=== PATIENT | male | born 1970 | race African-American/Black ===

== ENCOUNTER 2021-12-31 23:25 | Emergency (ER) | payer OTHER, SELFPAY ==
[2021-12-31 23:29] VITALS: BP 174/107; PULSE 66; RESP 15; TEMP 36.6; O2SAT 99
--- NOTE | 2022-01-01 00:05 | ED.GENADULT ---
HPI - General Adult General Chief complaint: Neuro Symptoms/Deficit Stated complaint: left side facial droop Time Seen by Provider: 12/31/21 23:34 Source: patient and RN notes reviewed Mode of arrival: ambulatory Limitations: no limitations History of Present Illness HPI narrative: This is a 51 year old male who presents for evaluation of right facial droop since 3 am this morning. 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 He noticed that his right side was drooping this morning starting over 20 hours ago. He reports tingling to right side of face. He denies slurred speech, headache, dizziness or focal weakness. HE does feel like his right eye is dry and gritty. He states he knows that he has sher's palsy. Related Data Allergies Allergy/AdvReac Type Severity Reaction Status Date / Time No Known Allergies Allergy Verified 12/31/21 23:36 Review of Systems Review of Systems: All systems reviewed & are unremarkable except as noted in HPI and below Constitutional: Constitutional: Denies chills and Denies fatigue Eyes: Eyes: Denies change in vision and Denies photophobia ENT: Denies vertigo, Denies nasal congestion and Denies sore throat Cardiovascular: Cardiovascular: Denies chest pain and Denies radiating jaw, neck or arm pain Respiratory: Respiratory: Denies chest congestion and Denies cough Gastrointestinal: Gastrointestinal: Denies abdominal pain, Denies nausea and Denies vomiting Neurologic: Denies vertigo, Denies dizziness, Denies syncope, Denies headache(s) and Denies focal weakness Psychiatric: Psychiatric: Denies anxiety and Denies depression PMFSH Past Medical History Medical History (Updated 01/01/22 @ 00:16 by Lucretia Saenz MD) H/O Sher's palsy Surgical History Surgical History (Updated 01/01/22 @ 00:11 by Lucretia Saenz MD) No pertinent past surgical history Social History Social History (Updated 01/01/22 @ 00:11 by Lucretia Saenz MD) Smoking status: Never smoker Exam Const: General: healthy appearing and alert Nutritional Appearance: well nourished Orientation/consciousness: patient oriented x3 HENMT: Head: normal to inspection Ears: external ears normal and TM's normal bilaterally General nose exam: Normal external nose present Mouth: Yes Normal oral and palatal mucosa present and Yes moist mucous membranes Throat: posterior oropharynx normal and uvula midline Other: left prearicular large nodule that has been present for many years Eyes: Conjunctivae: conjunctivae normal Pupils: Equal, round and reactive pupils present EOM: EOMs intact bilaterally Neck: Neck: normal visual inspection Chest: Chest palpation & inspection: normal inspection of the chest Resp: Effort & Inspection: normal respiratory effort Auscultation: clear to auscultation bilaterally Cardio: Rate: regular rate Rhythm: regular rhythm Heart sounds: no murmurs Neuro: General: patient oriented x3, moves all extremities and no meningeal signs Cranial nerves: Yes Bilaterally intact EOM present, Yes Nystagmus not present, Yes Midline tongue present, Yes Ability to bilaterally rotate head present, Yes Ability to bilaterally elevate shoulders present and Yes Other cranial nerve findings present (right upper and lower facial paralysis) Cognition (Neuro): normal cognition Speech: normal speech Gait exam (Neuro): Normal gait present Course Reevaluation(s) Reevaluation #1: Patient appears to have Sher's palsy. No other deficits. I Discussed discharge plan and management Date: 01/01/22 Time: 00:14 Vital Signs Vital signs: Vital Signs Temperature 97.8 F 12/31/21 23:29 Pulse Rate 66 12/31/21 23:29 Respiratory Rate 15 12/31/21 23:29 Blood Pressure 174/107 H 12/31/21 23:29 Pulse Oximetry 99 12/31/21 23:29 Oxygen Delivery Room Air 12/31/21 23:29 Temperature 98.0 F 01/01/22 00:37 Pulse Rate 53 L 01/01/22 00:37 Res
[2022-01-01 00:37] VITALS: BP 155/98; PULSE 53; RESP 19; TEMP 36.7; O2SAT 99
--- NOTE | 2022-01-01 00:38 | PC.NURSE ---
Pt ambulated out of ED c steady, even, unassisted gait. Verbalized understanding of d/c instructions.
== END 2022-01-01 00:38 | disposition home or self-care (01) ==
LOC: ANHED 01-01 00:19
PROVIDERS: Emergency Provider General Practice
DX: G51.0 Bell's palsy (principal); R29.702 NIHSS score 2
CPT/HCPCS: 99283

== ENCOUNTER 2024-07-09 09:41 | Emergency (ER) | payer OTHER, SELFPAY ==
--- NOTE | ~2024-07-09 | CT_ITS ---
EXAMINATION: CT brain wo con DATE: 07/09/2024 11:58 INDICATION: Migraine headache. TECHNIQUE: Computed tomography (CT) of the head was performed without intravenous contrast. The mA wa s adjusted according to patient size. Iterative reconstruction technique was employed. The dose-lengt h product was 605.33 mGy-cm. COMPARISON: None FINDINGS: There is no intracranial hemorrhage, acute infarction, or abnormal intracranial mass lesion . The ventricles are normal in size. There is mild mucosal thickening in the paranasal sinuses. The m astoid air cells are normal. The orbits are normal. IMPRESSION: 1. Normal brain. Reviewed, dictated and finalized at location A. [employer] TE[employer]IST IMPRESSION: 1. Normal brain.
[2024-07-09 09:49] VITALS: BP 154/91; PULSE 116; RESP 20; TEMP 37.1; O2SAT 97
--- OUTSIDE RECORDS SUMMARY | 2024-07-09 10:40 | XMS_ITS | Clinical Summary ---
Author Organization [facility] Address [address] [address] Care Team Providers Care Make Up Man Name Role Phone Unavailable Primary Care Provider Unavailabl e Source Comments [facility],non-owned Affiliates and Associated Physician Practices is amultiple site organization consisting of ambulatory clinics and hospital sitesin [place], [place], [place] and [place]. This disclosure is being madepursuant to the Care Everywhere program and may not contain all information available regarding this patient. Last updated 18.[facility] Scienion Social History Tobacco Use Types Packs/Day Years Used Date Smoking Tobacco: Never Alcohol Use Standard Drinks/Week Comments No 0 (1 standard drink = 0.6 oz pur e alcohol) Sex and Gender Information Value Date Recorded Sex Assigned at Not on file Gender Identity Not on file Sexual Orientation Not on file Last Filed Vital Signs Vital Sign Reading Time Taken Comments Blood Pressure 146/93 12/04/2014 2:12 AM CDT Pulse 56 12/04/2014 3:24 AM CDT Temperature 36.7 C (98 F) 12/04/2014 2:12 AM CDT Respiratory Rate 15 12/04/2014 3:24 AM CDT Oxygen Saturation 99% 12/04/2014 3:24 AM CDT Inhaled Oxygen Concentration - - Weight 106.6 kg (235 lb) 12/04/2014 2:12 AM CDT Height 193 cm (6' 4 ) 12/04/2014 2:12 AM CDT Body Mass Index 28.61 12/04/2014 2:12 AM CDT Plan of Treatment Health Maintenance Due Date Last Done Comments COLOGUARD (AGES 45-75) - COL ON CA SCREENING 1972 COLON MONITORING 1972 COLONOSCOPY - COLON CA SCREENING 1972 CT COLONOGRAPHY - COLON CA SCREENING 1972 Colorectal Cancer Screening 1972 FIT - COLON CA SCREENING 1972 FLEX SIG - COLON CA SCREENING 1972 LIPID TESTING 1972 HIV SCREENING 07/20/1987 HEPATITIS C SCREENING 07/15/1990 DTAP/TDAP/TD VACCINES (1 - Tdap) 07/20/1991 HEPATITIS B VACCINE (1 of 3 - 19+ 3-dose series) 07/20/1991 PNEUMOCOCCAL VACCINE 50+ (1 of 1 - PCV) 2022 ZOSTER VACCINE (1 of 2) 2022 COVID-19 VACCINE ( - 2023-2 5 season) 2024 INFLUENZA VACCINE (#1) 2024 DEPRESSION SCREENING 05/14/2024 HIB VACCINE Aged Out No longer eligi ble based on patient's age to complete this topic HPV VACCINE Aged Out No longer eligi ble based on patient's age to complete this topic MENINGOCOCCAL (Group B) VACCINE Aged Out No longer eligible based on patient's age to complete this topic MENINGOCOCCAL VACCINE Aged Out No jac babs eligible based on patient's age to complete this topic PNEUMOCOCCAL VACCINE Aged Out No long er eligible based on patient's age to complete this topic
--- OUTSIDE RECORDS SUMMARY | 2024-07-09 10:40 | XMS_ITS | Referral Summary ---
Author Organization [facility] Address [address] [place] [place] [address] Care Team Providers Care Registered Radiologic Technologist Name Role Phone Unavailable Primary Care Provider Unavailabl e Source Comments [facility],non-owned Affiliates and Associated Physician Practices is amultiple site organization consisting of ambulatory clinics and hospital sitesin [place], [place], [place] and [place]. This disclosure is being madepursuant to the Care Everywhere program and may not contain all information available regarding this patient. Last updated 18.[facility] Social History Tobacco Use Types Packs/Day Years [...] 12/04/2014 2:12 AM CDT Plan of Treatment Not on file
--- OUTSIDE RECORDS SUMMARY | 2024-07-09 10:40 | XMS_ITS | Clinical Summary ---
Author Organization [facility] Address [address] [place] [address] Care Team Providers Care County Nurse Name Role Phone Unavailable Primary Care Provider Unavailabl e Social History Tobacco Use Types Packs/Day Years Used Date Smoking Tobacco: Never Assessed Sex and Gender Information Value Date Recorded Sex Assigned at Not on file Legal Sex Male 5:17 PM CDT Gender Identity Not on file Sexual Orientation Not on file Plan of Treatment Health Maintenance Due Date Last Done Comments Colorectal Cancer Screening Colonoscopy (10 Years) 1972 Annual Physical 07/20/1975 Hepatitis C 1990 DTaP, Tdap and Td Vaccines ( 1 - Tdap) 07/20/1991 Hepatitis B Vaccines (1 of 3 - 19+ 3-dose series) 07/20/1991 Zoster Vaccines (1 of 2) 2022 COVID-19 Vaccine (2023-2 5 season) 2024 Influenza Adult (#1) 2024 Meningococcal B Vaccine Aged Out No l onger eligible based on patient's age to complete this topic Meningococcal Vaccine Aged Out No jac babs eligible based on patient's age to complete this topic Pneumococcal Vaccine: Pediat rics (0 to 5 Years) and At-Risk Patients (6 to 64 Years) Aged Out No longer eligible b ased on patient's age to complete this topic RSV Immunizations Under 20 Months Aged Out No longer eligible based on patient's age to complete this topic
--- OUTSIDE RECORDS SUMMARY | 2024-07-09 10:40 | XMS_ITS | Patient Health Summary ---
Author Organization [facility] Address [address] [place] [address] Care Team Providers Care Network Services Project Manager Name Role Phone Unavailable Primary Care Provider Unavailabl e Note from [facility],non-owned Affiliates and Associated Physician Practices is amultiple site organization consisting of ambulatory clinics and hospital sitesin [place], [place], [place] and [place]. This disclosure is being madepursuant to the Care Everywhere program and may not contain all information available regarding this patient. Last updated 18.[facility] Social History Tobacco Use Types Packs/Day Years [...] Mass Index 28.61 12/04/2014 2:12 AM CDT Procedures * GLUCOSE ACCUCHECK(Performed 12/04/2014) Results * GLUCOSE ACCUCHECK (12/04/2014 2:10 AM CDT) Glucose, Fingerstick 99 70-115mg/d L mg/dL [facility] (BEAKER) Comment: RN notified name is Fluorescent Lighting Model Maker: ANNY [place] 12/04/2014 2:10 AM CDT Margarette Shirley MD LAB - CHEMISTRY [facility] P[facility] ([facility])
--- OUTSIDE RECORDS SUMMARY | 2024-07-09 10:40 | XMS_ITS | Clinical Summary ---
Author Organization [facility] [address] Address [address] [place] [id number] Care Team Providers Care Reclaimer Name Role Phone Amy Bob Primary Care Provider [phone] Naga South MD Unavailable [phone] Allergies No known active allergies Medications amLODIPine (NORVASC) 5 mg tabletIndications :Primary hypertension Take 1 tablet (5 mg total) by mouth daily 90 tablet 3 5 Active amLODIPine (NORVASC) 5 mg tablet Take 1 tablet (5 mg total) by mouth daily 90 tablet 3 3 06/23/19 25 Discontinu ed(Reorder ) Active Problems Problem Noted Date Diagnosed Date Encounter for screening colonoscopy 01/10/2023 Screening for colon cancer 04/24/2022 Overview (04/24/2022): Added automatically from request for surgery [id number] Assessment & Plan (09/06/2022 1:27 PM CDT): Colonoscopy scheduled for 10/2022 Primary hypertension 01/09/2022 Assessment & Plan (03/08/2023 3:32 PM CDT): Stable on norvasc 5 mg daily. Lab order printed and given to patient. He will try to complete in next couple weeks. Assessment & Plan (09/06/2022 1:28 PM CDT): Not to goal. He d/c'd his medication due to it looking different. Suspect was from different boarder hand. Encouraged him to restart norvasc 5 mg daily. He can reach out to pharmacy to verify he was given correct medication. Recommend home BP monitoring. Assessment & Plan (02/06/2022 11:56 AM CDT): Well controlled. Continue current regimen. Assessment & Plan (01/09/2022 12:55 PM CDT): New diagnosis. Start amlodipine 5 mg daily. 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 He has normal facial nerve function. We talked about getting back to work and I think that is fine but I would wait another week for that. He is fine with that also. At this point the tumor was completely excised. There is no need for further intervention. I will follow up with him as needed. 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 I explained to him that this is a tumor. I am recommending removal of this because it will continue to get larger and there is some potential for malignancy. I talked with the patient about the risks of parotidectomy surgery. The risks include facial paralysis, permanent numbness at the operative site including the ear. There is also risk of recurrence of this tumor or the potential need for further surgery to address disease. There is also some risk of bleeding, infection and permanent cosmetic deformity including the scar and soft tissue defect at the operative site. I told the may be off work for 2-3 weeks recovering. 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 He understands this. He would like to proceed. Encounters Date Type Department Care Team Description 06/23/2024 9:00 AM PRODUCTION TECHNOLOGIST Office Visit [facility] [address] [place] [address] Zabrina Everett DNP Annual physical exam (Primary Dx); Encounter to establish care; Primary hypertension; Screening for diabetes mellitus; Thyroid disorder screen; Lipid screening; Encounter for vitamin deficiency screening; Prostate cancer screening; Encounter for long-term (current) use of medications from Last 3 Months Immunizations Immunization Administration Dates Next Due DTP 03/08/1979, 5,08/13/1973,1972, 3 Influenza, Unspecified 06/23/2024(Deferr ed: Patient Refused),03/08/2023(Deferred: Patient Refused),02/06/2022(Deferred: Patient Refused),05/14/2021(Deferred: Patient Refused),02/11/2021(Deferred: Patient Refused),01/12/2021(Deferred: Patient Refused),05/14/2020(Deferred: Patient Refused) Mumps 01/12/1978 OPV 03/08/1979, 5,08/13/1973,1972, 3 Rubella 12/17/1973 Td, adsorbed 12/23/1988 Surgical History Surgery Date Site/Laterality Comments PAROTIDECTOMY 05/22/2022 Left Medical History Medical History Date Comments Sher's palsy 12/2021 Hypertension Mass of left parotid gland 02/21/2022 Parotid tumor 05/22/2022 Family History Medical History Relation Name Comments Heart disease Father No Known Problems Mother Relation Name Status Comments Father Mother Alive Social History Tobacco Use Types Packs/Day Years Used Date Smoking Tobacco: Never Smokeless Tobacco: Never Tobacco Cessation:Counseling Given: Not Answered AUDIT-C Answer Date Recorded Q1: How often do you have a drink containing alc ohol? Monthly or less 06/23/2024 Q2: How many drinks containi ng alcohol do you have on a typical day when you are drinking? 1 or 2 06/23/2024 Q3: How often do you have si x or more drinks on one occasion? Never 06/23/2024 PHQ-2 Answer Date Recorded PHQ-2 Total Score (If total score is 3 or more points, staff should administer the PHQ-9) 0 06/23/2024 Personal Safety Answer Date Recorded Have you ever been in or are you currently in a harmful physical or emotional relationship or is someone making you feel afraid or unsafe? Denies 03/26/2023 Sex and Gender Information Value Date Recorded Sex Assigned at Not on file Legal Sex Male 5:42 PM PRODUCTION TECHNOLOGIST Gender Identity Not on file Sexual Orientation Not on file Obstetrics History Last Filed Vital Signs Vital Sign Reading Time Taken Comments Blood Pressure 146/90 06/23/2024 9:07 AM PRODUCTION TECHNOLOGIST Pulse 85 06/23/2024 9:07 AM PRODUCTION TECHNOLOGIST Temperature 36.1 C (97 F) 03/26/2023 8:14 AM PRODUCTION TECHNOLOGIST Respiratory Rate 18 06/23/2024 9:07 AM PRODUCTION TECHNOLOGIST Oxygen Saturation 98% 06/23/2024 9:07 AM PRODUCTION TECHNOLOGIST Inhaled Oxygen Concentration - - Weight 130.5 kg (287 lb 9.6 oz) 06/23/2024 9:07 AM PRODUCTION TECHNOLOGIST Height 193 cm (6' 4 ) 06/23/2024 9:07 AM PRODUCTION TECHNOLOGIST Body Mass Index 35.01 06/23/2024 9:07 AM PRODUCTION TECHNOLOGIST Plan of Treatment Health Maintenance Due Date Last Done Comments Hepatitis C Screening 1972 DTaP/Tdap/Td Vaccine (6 - Tdap) 12/24/1988 12/23/1988, 03/08/1979, 09/04/1974, Additional history exists Hepatitis B Screening 1990 Zoster Vaccine (1 of 2) 2022 Prostate Cancer Screening-PSA 08/20/2023 08/19/2021 Covid-19 Vaccine ( season) 2024 08/16/2020 Influenza Vaccine (#1) 2024 Depression Screening 06/23/2025 06/23/2024, 09/06/2022, 08/19/2021 Regular Well Visit/Exam 18-64 06/23/2025 06/23/2024, 09/06/2022 Colon Cancer Screening-Colonoscopy 03/26/2026 03/26/2023 Pneumococcal vaccine <65 Aged Out No longer eligible based on patient's age to complete this topic Procedures Procedure Name Priority Date/Time Associated Diagnosis Comments COLONOSCOPY 03/26/2023 7:48 AM PRODUCTION TECHNOLOGIST PSA SCREEN Routine 08/19/2021 8:54 AM CDT Establishing care with new doctor, encounter for Screening PSA (prostate specific antigen) Lipid screening from Last 3 Months or Most Recently Relevant to Health Maintenance Results * COLONOSCOPY (03/26/2023 7:48 AM PRODUCTION TECHNOLOGIST) Anatomical Region Laterality Modality Other Narrative Procedure Note Ray Cee MD - 03/26/2023 7:48 AM CST [facility] GI ENDOSCOPY Patient Name: Fei Coombs Procedure Date: 03/26/2023 7:48 AM Date of : 1970 Admit Type: Outpatient Age: 52 Gender: Male Attending MD: Ray Cee M.D. Room: [facility] ENDOSCOPY ROOM 06 Note Status: Finalized Procedure: Colonoscopy Indications: Screening for colorectal malignant neoplasm Referring MD: Myron Blanchard Providers: Ray Cee M.D. Medicines: Monitored Anesthesia Care Complications: No immediate complications. Estimated Blood Loss: Estimated blood loss: none. Procedure: Pre-Anesthesia Assessment: - Prior to the procedure, a History and Physicalwas performed, and patient medications and allergieswere reviewed. The risks and benefits of the procedureand the sedation options and risks were discussed withthe patient. All questions were answered and informed consent was obtained. Patient identification and proposed procedure were verified. After reviewingthe risks and benefits, the patient was deemed in satisfactory condition to undergo the procedure.The anesthesia plan was to use monitored anesthesiacare (MAC). Immediately prior to administration of medications, the patient was re-assessed foradequacy to receive sedatives. The heart rate, respiratory rate, oxygen saturations, blood pressure, adequacyof pulmonary ventilation, and response to care were monitored throughout the procedure. The physical status of the patient was re-assessed after the procedure. The benefits, risks and alternatives of theprocedure and sedation were discussed and informed consentwas obtained. All questions were answered. Please referto the signed informed consent document in the medical record. The scope was passed under direct vision.The [id number] colonoscope was introduced through theanus and advanced to the cecum, identified byappendiceal orifice and ileocecal valve. The colonoscopy was performed without difficulty. The patient tolerated the procedure well. The quality of the bowel preparation was fair. Scope withdrawal time was 14 minutes. Prep was administered in a split dose. Findings: The perianal and digital rectal examinations were normal. A 15 mm polyp was found in the cecum. The polyp was sessile. Thepolyp was removed with a hot snare. Resection and retrieval werecomplete. Multiple medium-mouthed diverticula were found in the sigmoidcolon. Non-bleeding internal hemorrhoids were found during retroflexion. The hemorrhoids were small. The exam was otherwise without abnormality. Impression: - Preparation of the colon was fair. - One 15 mm polyp in the cecum, removed with a hot snare. Resected and retrieved. - Diverticulosis in the sigmoid colon. - Non-bleeding internal hemorrhoids. - The examination was otherwise normal. Recommendation: - Patient has a contact number available for emergencies. The signs and symptoms of potential delayed complications were discussed with thepatient. Return to normal activities tomorrow. Written discharge instructions were provided to thepatient. - High fiber diet. - Continue present medications. - Await pathology results. - Repeat colonoscopy in 3 years for surveillance. Ray Cee, M.D. Ray Cee M.D. 03/26/2023 8:14:27 AM . Number of Addenda: 0 Note Initiated On: 03/26/2023 7:48 AM Recognized by the [employer] for promoting quality in endoscopy us Ray Cee MD ENDOSCOPY PROCEDURES Final Resul t * PSA screen (08/19/2021 8:54 AM CDT) PSA-Total 1.50 ng/mL SAY ALEMAN Comment: Interpretive Data AGE SEX REFERENCE INTERVAL 0 minutes-150 years Female None 0 minutes-49 years Male None 50-59 years Male 0-3.90 60-69 years Male 0-5.40 70-79 years Male 0-6.20 80-150 years Male 0-6.20 Current interpretive data last revised 2018. Blood 08/19/2021 8:54 AM CDT 08/19/2021 3:02 PM CDT Johny Fuentes MD LAB BLOOD ORDERABLES Vesta l Result [facility] [address] Department [place] [address] from Last 3 Months or Most Recently Relevant to Health Maintenance Insurance [facility] [employer] [employer] [facility] [employer] Advance Directives For more information, please contact: [phone] * Full Code (Latest Code Status on File) Date Activated Date Inactivated Comments 05/22/2022 4:20 PM 05/23/2022 12:52 PM Care Teams Reclaimer Relationship Specialty Start Date End Date Amy Bob PA PCP - General Family Medicine 01/09/22 [place] [address] Consulting Physician Otolaryngology 05/23/22
--- OUTSIDE RECORDS SUMMARY | 2024-07-09 10:40 | XMS_ITS | Referral Summary ---
Author Organization [facility] [address] Address [address] [place] [phone] Care Team Providers Care Senior Radiation Protection Technician Name Role Phone Amy Bob Primary Care Provider [phone] Naga South MD Unavailable [phone] Encounters Date Type Department Care Team Description 06/23/2024 9:00 AM GIS MANAGER Office Visit [facility] Family Medicine [address] [place] [phone] Zabrina Everett DNP Annual physical exam (Primary Dx); Encounter to establish care; Primary hypertension; Screening for diabetes mellitus; Thyroid disorder screen; Lipid screening; Encounter for vitamin deficiency screening; Prostate cancer screening; Encounter for long-term (current) use of medications from Last 3 Months Allergies No known active allergies Medications amLODIPine [...] (04/24/2022): Added automatically from request for surgery [id number] Assessment & Plan (09/06/2022 1:27 PM CDT): [...] it looking different. Suspect was from different motorsports technician. Encouraged him to restart norvasc 5 mg [...] 06/23/2024 Assessment & Plan (06/02/2022 10:56 AM GIS MANAGER): He is healing very well. He has [...] for 2-3 weeks recovering. 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 He understands this. He would like to proceed. Immunizations Immunization Administration Dates Next Due DTP 03/08/1979, 5,08/13/1973,1972, 3 Influenza, Unspecified 06/23/2024(Deferr ed: Patient Refused),03/08/2023(Deferred: Patient Refused),02/06/2022(Deferred: Patient Refused),05/14/2021(Deferred: Patient Refused),02/11/2021(Deferred: Patient Refused),01/12/2021(Deferred: Patient Refused),05/14/2020(Deferred: Patient Refused) Mumps 01/12/1978 OPV 03/08/1979, 5,08/13/1973,1972, 3 Rubella 12/17/1973 Td, adsorbed 12/23/1988 Social History Tobacco Use Types Packs/Day Years [...] on file Legal Sex Male 5:42 PM GIS MANAGER Gender Identity Not on file Sexual Orientation Not on file Last Filed Vital Signs Vital Sign Reading Time Taken Comments Blood Pressure 146/90 06/23/2024 9:07 AM GIS MANAGER Pulse 85 06/23/2024 9:07 AM GIS MANAGER Temperature 36.1 C (97 F) 03/26/2023 8:14 AM GIS MANAGER Respiratory Rate 18 06/23/2024 9:07 AM GIS MANAGER Oxygen Saturation 98% 06/23/2024 9:07 AM GIS MANAGER Inhaled Oxygen Concentration - - Weight 130.5 kg (287 lb 9.6 oz) 06/23/2024 9:07 AM GIS MANAGER Height 193 cm (6' 4 ) 06/23/2024 9:07 AM GIS MANAGER Body Mass Index 35.01 06/23/2024 9:07 AM GIS MANAGER Plan of Treatment Not on file Procedures Procedure Name Priority Date/Time Associated Diagnosis Comments COLONOSCOPY 03/26/2023 7:48 AM GIS MANAGER PSA SCREEN Routine 08/19/2021 8:54 AM CDT Establishing care with new doctor, encounter for Screening PSA (prostate specific antigen) Lipid screening from Last 3 Months or Most Recently Relevant to Health Maintenance Results * COLONOSCOPY (03/26/2023 7:48 AM GIS MANAGER) Anatomical Region Laterality Modality Other Narrative Procedure Note Ray Cee MD - 03/26/2023 7:48 AM CST [facility] GI ENDOSCOPY Patient Name: Fei Coombs Procedure Date: 03/26/2023 7:48 AM Date of : 1970 Admit Type: Outpatient Age: 52 Gender: Male Attending MD: Ray Cee M.D. Room: [facility] ENDOSCOPY ROOM 06 Note Status: Finalized Procedure: [...] The scope was passed under direct vision.The PCF-[id number] colonoscope was introduced through theanus and advanced [...] colonoscopy in 3 years for surveillance. Ray Cee M.D. Ray Cee M.D. 03/26/2023 8:14:27 AM . Number of Addenda: 0 Note Initiated On: 03/26/2023 7:48 AM Recognized by the [place] [employer] for promoting quality in endoscopy Ray Cee MD ENDOSCOPY PROCEDURES Final Resul t * PSA screen (08/19/2021 8:54 AM CDT) PSA-Total 1.50 ng/mL SAY Comment: Interpretive Data AGE SEX REFERENCE INTERVAL 0 minutes-150 years Female None 0 minutes-49 years Male None 50-59 years Male 0-3.90 60-69 years Male 0-5.40 70-79 years Male 0-6.20 80-150 years Male 0-6.20 Current interpretive data last revised 2018. Blood 08/19/2021 8:54 AM CDT 08/19/2021 3:02 PM CDT Johny Fuentes MD LAB BLOOD ORDERAB[place] [address] [address] [place] [address] from Last 3 Months or Most Recently Relevant to Health Maintenance Insurance [facility] CHOICE PLUS [facility] CHOICE PLUS Advance Directives For more information, please contact: [phone] * Full Code (Latest Code Status on File) Date Activated Date Inactivated Comments 05/22/2022 4:20 PM 05/23/2022 12:52 PM Care Teams Senior Radiation Protection Technician Relationship Specialty Start Date End Date Amy Bob PA PCP - General Family Medicine 01/09/22 Naga South MD [address] [place] [address] Consulting Physician Otolaryngology 05/23/22
--- NOTE | 2024-07-09 11:44 | ED_ITS ---
HPI - Headache General Chief Complaint: Headache <Rita Rodas PA-C - Last Filed: 07/09/24 16:03> Stated Complaint: SNOWDEN since yesterday <Rita Rodas PA-C - Last Filed: 07/09/24 16:03> Time Seen by Provider: 07/09/24 11:44 <Rita Rodas PA-C - Last Filed: 07/09/24 16:03> Focused HPI: This is a 53 year old male that presents to the ER for a migraine headache. Ongoing since yesterday. He took Ibuprofen this morning for pain with some improvement. Reports he does not usually get migraines. No recent injuries. Denies vision changes, vomiting, numbness, weakness. GENERAL: Well-appearing, well-nourished, and in no acute distress. HEAD: Normocephalic, atraumatic. CHEST: Clear to auscultation. ?No respiratory distress. HEART: Regular rate and rhythm.? NEURO: ?Alert and oriented x3. Patient screened in triage and initial orders placed.? ?Additional care and disposition to be based upon?diagnostic testing and treatment. <Rita Rodas PA-C - Last Filed: 07/09/24 16:03> History of Present Illness HPI Narrative: Agree with HPI <Ja Stahl MD - Last Filed: 07/09/24 16:01> Related Data Allergies/Adverse Reactions: Allergies Allergy/AdvReac Type Severity Reaction Status Date / Time No Known Allergies Allergy Verified 07/09/24 09:43 <Rita Rodas PA-C - Last Filed: 07/09/24 16:03> Review of Systems 2 Review of Systems: All systems reviewed & are unremarkable except as noted in HPI and below <Ja Stahl MD - Last Filed: 07/09/24 16:01> Constitutional: Constitutional: Reports no additional constitutional complaints <Ja Stahl MD - Last Filed: 07/09/24 16:01> Cardiovascular: Cardiovascular: Reports no additional cardiovascular complaints <Ja Stahl MD - Last Filed: 07/09/24 16:01> Respiratory: Respiratory: Reports no additional respiratory complaints < aJ Stahl MD - Last Filed: 07/09/24 16:01> Gastrointestinal: Gastrointestinal: Reports no additional gastrointestinal complaints <Ja Stahl MD - Last Filed: 07/09/24 16:01> Musculoskeletal: Musculoskeletal: Reports no additional musculoskeletal complaints <Ja Stahl MD - Last Filed: 07/09/24 16:01> PMFSH Past Medical History Medical History: Medical History (Updated 07/09/24 @ 15:59 by Ja Stahl MD) H/O Sher's palsy <Rita Rodas PA-C - Last Filed: 07/09/24 16:03> Surgical History Surgical History: Surgical History (Updated 01/01/22 @ 00:11 by Lucretia Saenz MD) No pertinent past surgical history <Rita Rodas PA-C - Last Filed: 07/09/24 16:03> Social History Social History: Social History (Updated 01/01/22 @ 00:11 by Lucretia Saenz MD) Smoking status: Never smoker <Rita Rodas PA-C - Last Filed: 07/09/24 16:03> Exam 2 Narrative: GENERAL: Well-appearing, well-nourished, and in no acute distress. HEAD: Normocephalic, atraumatic. ENT: Mucous membranes moist. CHEST: Clear to auscultation. No respiratory distress. HEART: Regular rate and rhythm. Normal peripheral pulses. ABDOMEN: Soft, nontender, nondistended. EXTREMITIES: Normal range of motion. No edema. SKIN: Warm, dry, no rash. NEURO: Alert and oriented x3. PSYCH: Normal mood and affect. <Ja Stahl MD - Last Filed: 07/09/24 16:01> Course Course Emergency Course: Patient resting comfortably. Informed of results. Hydrated. Discharge home. <Ja Stahl MD - Last Filed: 07/09/24 16:01> Vital Signs Vital signs: Vital Signs Temperature 98.8 F 07/09/24 09:49 Pulse Rate 116 H 07/09/24 09:49 Respiratory Rate 20 07/09/24 09:49 Blood Pressure 154/91 H 07/09/24 09:49 Pulse Oximetry 97 07/09/24 09:49 Temperature 98.8 F 07/09/24 09:49 Pulse Rate 88 07/09/24 15:35 Respiratory Rate 18 07/09/24 15:35 Blood Pressure 142/77 H 07/09/24 15:35 Pulse Oximetry 95 07/09/24 15:35 <Rita Rodas PA-C - Last Filed: 07/09/24 16:03> Vital Signs Temperature 98.8 F 07/09/24 09:49 Pulse Rate 116 H 07/09/24 09:49 Respiratory Rate 20 07/09/24 09:49 Blood Pressure 154/91 H 07/09/24 09:49 Pulse Oximetry 97 07/09/24 09:49 Temperature 98.8 F 07/09/24 09:49 Pulse Rate 88 07/09/24 15:35 Respiratory Rate 18 07/09/24 15:35 Blood Pressure 142/77 H 07/09/24 15:35 Pulse Oximetry 95 07/09/24 15:35 <Ja Stahl MD - Last Filed: 07/09/24 16:01> MDM - Headache Lab Data Result diagrams: 07/09/24 13:58 07/09/24 13:58 <Rita Rodas PA-C - Last Filed: 07/09/24 16:03> Labs: Lab Results 07/09/24 Range/Units 13:58 WBC 6.1 (4.5-10.0) K/mm3 RBC 5.39 (4.6-6.20) M/mm3 Hgb 14.7 (14.0-18.0) g/dL Hct 43.8 (42.0-52.0) % MCV 81.3 (80-100) fl MCH 27.3 (26-34) pg MCHC 33.6 (32-36) g/dl RDW 15.2 H (11.5-14.5) % Plt Count 259 (150-375) k/mm3 MPV 10.6 H (7.4-10.4) fl Immature Gran % (Auto) 0.5 (0-0.5) % Neut % (Auto) 75.9 H (45.5-73.1) % Lymph % (Auto) 11.6 L (18.3-44.2) % Stephens % (Auto) 11.1 H (2.6-8.5) % Eos % (Auto) 0.2 (0-4.4) % Baso % (Auto) 0.7 (0.2-1.2) % Lymph # (Auto) 0.71 L (0.9-3.2) K/mm3 Stephens # (Auto) 0.7 H (0.1-0.6) K/mm3 Eos # (Auto) 0.0 (0-0.3) K/mm3 Baso # (Auto) 0.0 (0.0-0.1) K/mm3 Abs Immat Gran (auto) 0.03 (0.00-0.031) K/mm3 Absolute Neuts (auto) 4.6 (1.3-6.7) K/mm3 Absolute Nucleated RBC 0.000 (0.0-0.012) K/mm3 Nucleated RBC % 0.0 (0.0-0.2) % Sodium 138 (137-145) mmol/L Potassium 3.4 (3.4-5.0) mmol/L Chloride 103 (98-107) mmol/L Carbon Dioxide 24 (22-30) mmol/L Anion Gap 11 (4-12) mmol/L BUN 10 (9-20) mg/dL Creatinine 0.95 (0.7-1.3) mg/dL Estim Creat Clear Calc 114 ml/min Estimated GFR > 60 (59 - ) Glucose 100 (65-110) mg/dL Calcium 9.0 (8.4-10.2) mg/dL Total Bilirubin 0.9 (0.2-1.3) mg/dL AST 36 (17-59) U/L ALT 36 (6-50) U/L Alkaline Phosphatase 66 (38-126) U/L Total Protein 8.0 (6.3-8.2) g/dL Albumin 4.1 (3.5-5.1) g/dL Influenza A (RT-PCR) Positive A (Negative) Influenza B (RT-PCR) Negative (Negative) RSV (RT-PCR) Negative (Negative) SARS-CoV-2 RNA (RT-PCR) Negative (Negative) <Rita Rodas PA-C - Last Filed: 07/09/24 16:03> Lab Results 07/09/24 Range/Units 13:58 WBC 6.1 (4.5-10.0) K/mm3 RBC 5.39 (4.6-6.20) M/mm3 Hgb 14.7 (14.0-18.0) g/dL Hct 43.8 (42.0-52.0) % MCV 81.3 (80-100) fl MCH 27.3 (26-34) pg MCHC 33.6 (32-36) g/dl RDW 15.2 H (11.5-14.5) % Plt Count 259 (150-375) k/mm3 MPV 10.6 H (7.4-10.4) fl Immature Gran % (Auto) 0.5 (0-0.5) % Neut % (Auto) 75.9 H (45.5-73.1) % Lymph % (Auto) 11.6 L (18.3-44.2) % Stephens % (Auto) 11.1 H (2.6-8.5) % Eos % (Auto) 0.2 (0-4.4) % Baso % (Auto) 0.7 (0.2-1.2) % Lymph # (Auto) 0.71 L (0.9-3.2) K/mm3 Stephens # (Auto) 0.7 H (0.1-0.6) K/mm3 Eos # (Auto) 0.0 (0-0.3) K/mm3 Baso # (Auto) 0.0 (0.0-0.1) K/mm3 Abs Immat Gran (auto) 0.03 (0.00-0.031) K/mm3 Absolute Neuts (auto) 4.6 (1.3-6.7) K/mm3 Absolute Nucleated RBC 0.000 (0.0-0.012) K/mm3 Nucleated RBC % 0.0 (0.0-0.2) % Sodium 138 (137-145) mmol/L Potassium 3.4 (3.4-5.0) mmol/L Chloride 103 (98-107) mmol/L Carbon Dioxide 24 (22-30) mmol/L Anion Gap 11 (4-12) mmol/L BUN 10 (9-20) mg/dL Creatinine 0.95 (0.7-1.3) mg/dL Estim Creat Clear Calc 114 ml/min Estimated GFR > 60 (59 - ) Glucose 100 (65-110) mg/dL Calcium 9.0 (8.4-10.2) mg/dL Total Bilirubin 0.9 (0.2-1.3) mg/dL AST 36 (17-59) U/L ALT 36 (6-50) U/L Alkaline Phosphatase 66 (38-126) U/L Total Protein 8.0 (6.3-8.2) g/dL Albumin 4.1 (3.5-5.1) g/dL Influenza A (RT-PCR) Positive A (Negative) Influenza B (RT-PCR) Negative (Negative) RSV (RT-PCR) Negative (Negative) SARS-CoV-2 RNA (RT-PCR) Negative (Negative) <Ja Stahl MD - Last Filed: 07/09/24 16:01> Imaging Data Radiologist's impression: ITS Impressions Head CT 07/09/24 12:04 IMPRESSION: 1. Normal brain. <Ja Stahl MD - Last Filed: 07/09/24 16:01> Discharge Plan Discharge Clinical Impression: Influenza A <Rita Rodas PA-C - Last Filed: 07/09/24 16:03> Patient Disposition: Home, Self-Care <Rita Rodas PA-C - Last Filed: 07/09/24 16:03> Condition: Stable <Rita Rodas PA-C - Last Filed: 07/09/24 16:03> Instructions: Influenza (ED) <Rita Rodas PA-C - Last Filed: 07/09/24 16:03> Additional Instructions: Return to the ER if you cannot breathe, cannot swallow, you lose consciousness, or you have additional concerns. <Rita Rodas PA-C - Last Filed: 07/09/24 16:03> Patient Language: [place]an <Rita Rodas PA-C - Last Filed: 07/09/24 16:03> Prescriptions: New oseltamivir [Tamiflu] 75 mg capsule 75 mg PO Q12H 5 Days Qty: 10 0RF No Action prednisone 20 mg tablet 60 mg PO DAILY 7 Days Qty: 21 0RF valacyclovir [Valtrex] 1 gram tablet 1,000 mg PO Q8H 7 Days Qty: 21 0RF <Rita Rodas PA-C - Last Filed: 07/09/24 16:03> Follow-up/Referrals: PHYSICIAN NOT ON STAFF,NONSTAFF [Non-Staff] - 1 Week <Rita Rodas PA-C - Last Filed: 07/09/24 16:03> Stand Alone Forms: Work/School Release IP <Rita Rodas PA-C - Last Filed: 07/09/24 16:03>
[2024-07-09] MEDS: SODIUM CHLORIDE 0.9% IV 1,000 ML 999 ML IV CONT ×2 (13:05→15:30)
[2024-07-09] MEDS: ACETAMINOPHEN 500 MG TABLET 1000 MG PO (13:05)
[2024-07-09] MEDS: KETOROLAC 30 MG/ML VIAL (*BKC) IV PUSH (13:05)
[2024-07-09] MEDS: METOCLOPRAMIDE HCL INJ 10 MG/2 ML VIAL IV PUSH (13:06)
[2024-07-09] MEDS: diphenhydrAMINE HCl INJ 50 MG/ML VIAL 25 MG IV PUSH (13:06)
[2024-07-09 13:14] VITALS: BP 153/92; PULSE 110; RESP 16; O2SAT 98
--- OUTSIDE RECORDS SUMMARY | 2024-07-09 13:57 | XMS_ITS | Referral Summary ---
Author Organization [facility] [address] Address [address] [place] [id number] Care Team Providers Care Drafting Layout Man Name Role Phone Amy Bob Primary Care Provider [phone] Naga South MD Unavailable [phone] Encounters Date Type Department Care Team Description 06/23/2024 9:00 AM DANCE THERAPIST Office Visit [facility] Family Medicine [address] [place] [phone] Zabrina Everett DNP Annual physical exam (Primary [...] (04/24/2022): Added automatically from request for surgery [id number] Assessment & Plan (09/06/2022 1:27 PM CDT): [...] it looking different. Suspect was from different crop production advisor. Encouraged him to restart norvasc 5 mg [...] 06/23/2024 Assessment & Plan (06/02/2022 10:56 AM DANCE THERAPIST): He is healing very well. He has [...] 2-3 weeks recovering. 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 [...] on file Legal Sex Male 5:42 PM DANCE THERAPIST Gender Identity Not on file Sexual Orientation Not on file Last Filed Vital Signs Vital Sign Reading Time Taken Comments Blood Pressure 146/90 06/23/2024 9:07 AM DANCE THERAPIST Pulse 85 06/23/2024 9:07 AM DANCE THERAPIST Temperature 36.1 C (97 F) 03/26/2023 8:14 AM DANCE THERAPIST Respiratory Rate 18 06/23/2024 9:07 AM DANCE THERAPIST Oxygen Saturation 98% 06/23/2024 9:07 AM DANCE THERAPIST Inhaled Oxygen Concentration - - Weight 130.5 kg (287 lb 9.6 oz) 06/23/2024 9:07 AM DANCE THERAPIST Height 193 cm (6' 4 ) 06/23/2024 9:07 AM DANCE THERAPIST Body Mass Index 35.01 06/23/2024 9:07 AM DANCE THERAPIST Plan of Treatment Not on file Procedures Procedure Name Priority Date/Time Associated Diagnosis Comments COLONOSCOPY 03/26/2023 7:48 AM DANCE THERAPIST PSA SCREEN Routine 08/19/2021 8:54 AM CDT Establishing care with new doctor, encounter for Screening PSA (prostate specific antigen) Lipid screening from Last 3 Months or Most Recently Relevant to Health Maintenance Results * COLONOSCOPY (03/26/2023 7:48 AM DANCE THERAPIST) Anatomical Region Laterality Modality Other Narrative Procedure Note Ray Cee MD - 03/26/2023 7:48 AM CST [facility] GI ENDOSCOPY Patient Name: Fei Coombs Procedure Date: 03/26/2023 7:48 AM Date of : 1970 Admit Type: Outpatient Age: 52 Gender: Male Attending MD: Ray Cee M.D. Room: [facility] ENDOSCOPY ROOM 06 Note Status: Finalized Procedure: [...] The scope was passed under direct vision.The [id number]-[id number] colonoscope was introduced through theanus and advanced [...] On: 03/26/2023 7:48 AM Recognized by the [place] [employer] Gastrointestinal Endoscopy for promoting quality [...] BLOOD ORDERAB[place] [address] [address] [place] [address] from Last 3 Months or Most Recently Relevant to Health Maintenance Insurance [facility] CHOICE PLUS [facility] [place] [address] Advance Directives For more information, please contact: [phone] * Full Code (Latest Code Status on File) Date Activated Date Inactivated Comments 05/22/2022 4:20 PM 05/23/2022 12:52 PM Care Teams Drafting Layout Man Relationship Specialty Start Date End Date Amy Bob PA PCP - General Family Medicine 01/09/22 Naga South MD [address] [place] [address] Consulting Physician Otolaryngology 05/23/22
--- OUTSIDE RECORDS SUMMARY | 2024-07-09 13:57 | XMS_ITS | Clinical Summary ---
Author Organization [facility] [address] Address [address] [place] [phone] Care Team Providers Care Telephone Information Clerk Name Role Phone Amy Bob Primary Care Provider [phone] Naga South MD Unavailable [phone] Allergies No known active allergies Medications amLODIPine [...] (04/24/2022): Added automatically from request for surgery [id number] Assessment & Plan (09/06/2022 1:27 PM CDT): [...] it looking different. Suspect was from different director of diversity and inclusion. Encouraged him to restart norvasc 5 mg [...] 06/23/2024 Assessment & Plan (06/02/2022 10:56 AM UNION ORGANIZER): He is healing very well. He has [...] 2-3 weeks recovering. 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 He understands this. He would like to proceed. Encounters Date Type Department Care Team Description 06/23/2024 9:00 AM UNION ORGANIZER Office Visit [facility] Family Medicine [address] [place] [phone] Zabrina Everett DNP Annual physical [...] on file Legal Sex Male 5:42 PM UNION ORGANIZER Gender Identity Not on file Sexual Orientation Not on file Obstetrics History Last Filed Vital Signs Vital Sign Reading Time Taken Comments Blood Pressure 146/90 06/23/2024 9:07 AM UNION ORGANIZER Pulse 85 06/23/2024 9:07 AM UNION ORGANIZER Temperature 36.1 C (97 F) 03/26/2023 8:14 AM UNION ORGANIZER Respiratory Rate 18 06/23/2024 9:07 AM UNION ORGANIZER Oxygen Saturation 98% 06/23/2024 9:07 AM UNION ORGANIZER Inhaled Oxygen Concentration - - Weight 130.5 kg (287 lb 9.6 oz) 06/23/2024 9:07 AM UNION ORGANIZER Height 193 cm (6' 4 ) 06/23/2024 9:07 AM UNION ORGANIZER Body Mass Index 35.01 06/23/2024 9:07 AM UNION ORGANIZER Plan of Treatment Health Maintenance Due Date [...] Associated Diagnosis Comments COLONOSCOPY 03/26/2023 7:48 AM UNION ORGANIZER PSA SCREEN Routine 08/19/2021 8:54 AM CDT Establishing care with new doctor, encounter for Screening PSA (prostate specific antigen) Lipid screening from Last 3 Months or Most Recently Relevant to Health Maintenance Results * COLONOSCOPY (03/26/2023 7:48 AM UNION ORGANIZER) Anatomical Region Laterality Modality Other Narrative Procedure Note Ray Cee MD - 03/26/2023 7:48 AM CST [facility] GI ENDOSCOPY Patient Name: Fei Coombs Procedure Date: 03/26/2023 7:48 AM Date of : 1970 Admit Type: Outpatient Age: 52 Gender: Male Attending MD: Ray Cee M.D. Room: [facility] ENDOSCOPY ROOM 06 Note Status: Finalized Procedure: [...] The scope was passed under direct vision.The PCF-[id number] colonoscope was introduced through theanus and advanced [...] On: 03/26/2023 7:48 AM Recognized by the [place] [employer] for promoting quality [...] MD LAB BLOOD ORDERABLES Vesta l Result [facility] [address] Department [place] [address] from Last 3 Months or Most Recently Relevant to Health Maintenance Insurance [facility] CHOICE PLUS [facility] CHOICE PLUS [facility] CHOICE PLUS Advance Directives For more information, please contact: [phone] * Full Code (Latest Code Status on File) Date Activated Date Inactivated Comments 05/22/2022 4:20 PM 05/23/2022 12:52 PM Care Teams Telephone Information Clerk Relationship Specialty Start Date End Date Amy Bob PA PCP - General Family Medicine 01/09/22 [place] [address] Consulting Physician Otolaryngology 05/23/22
--- OUTSIDE RECORDS SUMMARY | 2024-07-09 13:58 | XMS_ITS | Clinical Summary ---
Author Organization [facility] Address [address] [place] [address] Care Team Providers Care Community Advocate Name Role Phone Unavailable Primary Care Provider [...]
--- OUTSIDE RECORDS SUMMARY | 2024-07-09 13:58 | XMS_ITS | Patient Health Summary ---
Author Organization [facility] Address [address] [place] [address] Care Team Providers Care Vice President Of Software Engineering Name Role Phone Unavailable Primary Care Provider Unavailabl e Note from [facility],non-owned Affiliates and Associated Physician Practices is amultiple site organization consisting of ambulatory clinics and hospital sitesin [place], [place], [place] and [place]. This disclosure is being madepursuant to the Care Everywhere program and may not contain all information available regarding this patient. Last updated 18.[facility] Social History Tobacco Use Types Packs/Day Years [...] RALS (BEAKER) Comment: RN notified name is Network Technology Instructor: ANNY MONTANA 12/04/2014 2:10 AM CDT Margarette Shirley MD LAB - CHEMISTRY JEANE PARR [facility] ([facility])
--- OUTSIDE RECORDS SUMMARY | 2024-07-09 13:58 | XMS_ITS | Clinical Summary ---
Author Organization [facility] Address [address] [place] [address] Care Team Providers Care Hand Knitter Name Role Phone Unavailable Primary Care Provider Unavailabl e Source Comments [facility],non-owned Affiliates and Associated Physician Practices is amultiple site organization consisting of ambulatory clinics and hospital sitesin [place], [place], [place] and [place]. This disclosure is being madepursuant to the Care Everywhere program and may not contain all information available regarding this patient. Last updated 18.[facility] Social History Tobacco Use Types Packs/Day [...]
--- OUTSIDE RECORDS SUMMARY | 2024-07-09 13:58 | XMS_ITS | Referral Summary ---
Author Organization [facility] Address [address] [place] [address] Care Team Providers Care Political Science Professor Name Role Phone Unavailable Primary Care Provider Unavailabl e Source Comments [facility],non-owned Affiliates and Associated Physician Practices is amultiple site organization consisting of ambulatory clinics and hospital sitesin [place], [place], [place] and [place]. This disclosure is being madepursuant to the Care Everywhere program and may not contain all information available regarding this patient. Last updated 18.[facility] Social History Tobacco Use Types Packs/Day [...]
[2024-07-09 14:13] LABS: Basophils Percent Auto 0.7 % (0.2-1.2); Eosinophils Percent Auto 0.2 % (0-4.4); Hematocrit 43.8 % (42.0-52.0); Hemoglobin 14.7 g/dL (14.0-18.0); Immature Granulocyte Absolute 0.03 K/mm3 (0.00-0.031); Immature Granulocyte Percent A 0.5 % (0-0.5); Lymphocytes Absolute Auto 0.71 K/mm3 (0.9-3.2); Lymphocytes Percent Auto 11.6 % (18.3-44.2); Mean Corpuscular HGB Conc 33.6 g/dl (32-36); Mean Corpuscular Hemoglobin 27.3 pg (26-34); Mean Corpuscular Volume 81.3 fl (80-100); Mean Platelet Volume 10.6 fl (7.4-10.4); Monocytes Absolute Auto 0.7 K/mm3 (0.1-0.6); Monocytes Percent Auto 11.1 % (2.6-8.5); Neutrophils Absolute Auto 4.6 K/mm3 (1.3-6.7); Neutrophils Percent Auto 75.9 % (45.5-73.1); Platelet Count Result 259 k/mm3 (150-375); Red Blood Count 5.39 M/mm3 (4.6-6.20); Red Cell Distribution Width 15.2 % (11.5-14.5); White Blood Count 6.1 K/mm3 (4.5-10.0)
[2024-07-09 14:19] LABS: Alanine Aminotransferase 36 U/L (6-50); Albumin Level 4.1 g/dL (3.5-5.1); Alkaline Phosphatase 66 U/L (38-126); Anion Gap 11 mmol/L (4-12); Aspartate Amino Transferase 36 U/L (17-59); Bilirubin,Total 0.9 mg/dL (0.2-1.3); Blood Urea Nitrogen 10 mg/dL (9-20); Carbon Dioxide 24 mmol/L (22-30); Chloride 103 mmol/L (98-107); Estimated CRCL calculation 114 ml/min; Estimated Glomerular Filt Rate > 60; Glucose 100 mg/dL (65-110); Potassium 3.4 mmol/L (3.4-5.0); Sodium 138 mmol/L (137-145)
[2024-07-09 14:46] LABS: Influenza A QL RT-PCR Positive (Negative); Influenza B QL RT-PCR Negative (Negative); RSV RNA, RT-PCR Negative (Negative); SARS-CoV-2 RNA PCR Negative (Negative)
[2024-07-09 15:35] VITALS: BP 142/77; PULSE 88; RESP 18; O2SAT 95
--- NOTE | 2024-07-09 15:52 | PC.NURSE ---
Patient ambulated to the restroom with steady gate
== END 2024-07-09 16:35 | disposition home or self-care (01) ==
PROVIDERS: Emergency Provider Emergency Medicine
DX: J10.1 Influenza due to other identified influenza virus with other respiratory manifestations (principal); Z20.822 Contact with and (suspected) exposure to COVID-19
CPT/HCPCS: 36415; 70450; 80053; 85025; 87637; 96361; 96374; 96375; 99284; A9270; J1200; J1885; J2765; J7030